=== PATIENT | female | born 1985 | race Caucasian/White ===

== ENCOUNTER 2018-10-09 21:23 | Observation (INO) ==
[2018-10-09] MEDS ORDERED: MethylPREDNISolone Sod Succinate Inj 125 MG/2 ML Vial IV.PUSH ONE (21:42)
[2018-10-09] MEDS ORDERED: Famotidine PF Inj 20 MG/2 ML Vial IV.PUSH ONE (21:42)
--- NOTE | 2018-10-09 21:50 | ED ---
HPI General Chief complaint: Allergic Reaction Stated complaint: facial swelling/poss rection Time Seen by Provider: 10/09/18 21:42 Source: patient Mode of arrival: ambulatory Limitations: no limitations History of Present Illness HPI narrative: 33-year-old female patient presents to the ER today with swelling of the left face that started getting worse about an hour ago. She states that she has had an allergic reaction asked to an unknown substance, and this time is getting worse than usual. She denies any trouble swallowing, trouble breathing, throat swelling, or other symptoms. Modifying Factors: None Associated Signs & Symptoms: Allergic reaction, facial swelling Risk Factors: Previous history of allergic reactions Related Data Home Medications Medication Instructions Recorded Confirmed No Known Home Medications 10/09/18 10/09/18 Allergies Allergy/AdvReac Type Severity Reaction Status Date / Time No Known Allergies Allergy Verified 10/09/18 21:29 Review of Systems ROS: all other systems reviewed are negative [facility] Surgical History Surgical History History of cochlear implant (Acute) Social History Social History Smoking Status: Unknown if ever smoked How Often Do You Have a Drink Containing Alcohol: Unable to Obtain Recent Travel in [place] within the Last 8 Weeks: No Recent Out of Country Travel within the Last 8 Weeks: No Immunization History Tetanus Immunization: Unsure Exam Narrative Exam Narrative: GENERAL: Well-developed middle-aged female patient currently and in moderate distress. Awake and oriented x3. SKIN: Focused skin assessment warm/dry. HEAD: Atraumatic. Normocephalic. Notable edema of the left face more than the right face, with the eyelid with significant edema. EYES: Pupils equal and round. No scleral icterus. No injection or drainage. ENT: Mucosa pink and moist. No erythema or exudates. No uvular edema. No uvular , palatal, or tonsillar deviation. Airway patent. NECK: Trachea midline. No JVD. CARDIOVASCULAR: Regular rate and rhythm. No murmur appreciated. RESPIRATORY: No accessory muscle use. Clear to auscultation. Breath sounds equal bilaterally. GASTROINTESTINAL: Abdomen soft, non-tender, nondistended. Hepatic and splenic margins not palpable. MUSCULOSKELETAL: No obvious deformities. No clubbing. No cyanosis. No edema. NEUROLOGICAL: Awake and alert. No obvious cranial nerve deficits. Motor grossly within normal limits. Normal speech. PSYCHIATRIC: Appropriate mood and affect; insight and judgment normal. Course Initial Documented Vital Signs Temperature 97.2 F L 10/09/18 21:29 Pulse Rate 88 10/09/18 21:29 Respiratory Rate 18 10/09/18 21:29 Blood Pressure 139/80 10/09/18 21:29 Pulse Oximetry 98 10/09/18 21:29 Last Documented Vital Signs Temperature 97.2 F L 10/09/18 21:29 Pulse Rate 88 10/09/18 21:29 Respiratory Rate 18 10/09/18 21:29 Blood Pressure 139/80 10/09/18 21:29 Pulse Oximetry 98 10/09/18 21:29 Medical Decision Making MDM Narrative Medical decision making narrative: Patient was given allergic reaction treatment including epinephrine, Solu-Medrol, Benadryl, Zantac, and was observed in the ER for more than 3 hours. There was very little resolution of the edema and there is actually some additional edema on the right side of the face as well. At this point, there is concerned that with this. The edema it could worsen and spread into the airway, and at this point my plan would be to admit the patient as an observation. Case was discussed with Dr. Guerrero for admission. He has also asked me to give an additional Decadron 4 mg. Medical Screen Exam Complete: Yes Emergency Medical Condition: Yes Differential Diagnosis Differential Diagnosis: Allergic reaction Discharge Plan Discharge Disposition Patient Disposition: ED Admit(ED Internal Use Only) Discharge Condition Condition: Stable Discharge Order Discharge Orders: ED Use Only Admit Order (Routine); Ordered 10/10/18 Ordered By: Chantale Alvarado Discharge Details Anticipated Discharge Date: 10/10/18 Diagnosis: Angioedema Physicians Team ED Provider: Chantale Alvarado Primary Care Provider: UNKNOWN, Attending Provider: Jude Guerrero Status ED Status: Admitted Observation Patient
[2018-10-10 04:51] LABS: Baso % (Auto) 0.5 % (0.0-2.0); Eos # (Auto) 0.1 th/mm3 (0.0-0.4); Eos % (Auto) 1.6 % (0.0-4.0); Hematocrit 41.5 % (35.0-46.0); Hemoglobin 14.4 gm/dL (11.6-15.3); Lymph # (Auto) 2.9 th/mm3 (1.0-4.8); Mean Corpuscular HGB Conc 34.7 % (32.0-36.0); Mean Corpuscular Hemoglobin 32.3 pg (27.0-34.0); Mean Platelet Volume 9.5 fL (7.0-11.0); Mono # (Auto) 0.4 th/mm3 (0.0-0.9); Mono % (Auto) 5.4 % (0.0-8.0); Neut # (Auto) 4.7 th/mm3 (1.8-7.7); Neut % (Auto) 57.5 % (16.0-70.0); Platelet Count 245 th/mm3 (150-450); Red Blood Count 4.47 mil/mm3 (4.00-5.30); Red Cell Distribution Width 12.9 % (11.6-17.2); White Blood Count 8.2 th/mm3 (4.0-11.0)
[2018-10-10 05:22] LABS: Calcium 8.8 mg/dL (8.5-10.1); Carbon Dioxide 25.9 meq/L (21.0-32.0)
[2018-10-10 05:23] LABS: Potassium 3.9 meq/L (3.5-5.1)
--- NOTE | 2018-10-10 12:13 | P.HPIM ---
History of Present Illness Primary Care Physician: UNKNOWN Chief Complaint: swellingin forehead and left eye History of Present Illness: This is a 33-year-old female with past medical history which includes meningitis with bilateral hearing loss at 8 months old. Patient has had intermitted swelling of forehead and left eye since May. Patient does not take any medications at home. Patient reports that she does not wear makeup, has not changed any of her skin or hair produces, has not changed detergents or soaps. Patient was initially treated by vulnerability researcher with eye drops then treated by lumber sales supervisor with steroids. Patient has also had bx by lumber sales supervisor. Patient does not follow with a primary MD. Patient reports that she has been assigned to Dr. Oneill, but has not yet seen him. Patient has tried to get into see a collector of aquarium specimens but has not yet seen one. Patient present ed to the ER due edema. Patient reports that her entire forehead was swollen and her left eye was swollen shut. Patient received epinephrine, Solu-Medrol, Benadryl, Zantac and Decadron 4 mg in the ER in the ER. Patient now is able to open her left eye and the edema in forehead area has decreased significantly. She denies any trouble swallowing, trouble breathing, throat swelling, shortness of breath PMH: meningitis with bilateral hearing loss at 8 months old PSxH: cochlear implant FMH: reviewed and noncontributory Social history: Patient works as a nurse in a med/surg pediatric unit Medications and Allergies Allergies Allergy/AdvReac Type Severity Reaction Status Date / Time No Known Allergies Allergy Verified 10/09/18 21:29 Home Medications Medication Instructions Recorded Confirmed Type No Known Home Medications 10/09/18 10/09/18 History Active Medications: Active Medications Sodium Chloride (Ns Flush) 2 ml IV.FLUSH PRN PRN PRN Reason: FLUSH AFTER USING IV ACCESS Physical Exam Vital signs: Last Vital Signs Temp 98.3 F 10/10/18 08:55 Pulse 81 10/10/18 08:55 Resp 16 10/10/18 08:55 BP 130/66 10/10/18 08:55 Pulse Ox 97 10/10/18 08:55 Narrative: GENERAL: This is a well-nourished, well-developed patient, in no apparent distress. HEENT: No nasal bleeding or discharge. Mucous membranes pink and moist, Trachea midline. No JVD. Airway patent. Moderate amount of periorbital edema noted CARDIOVASCULAR: Regular rate and rhythm RESPIRATORY: Clear to auscultation. Breath sounds equal bilaterally. GASTROINTESTINAL: Abdomen soft, non-tender, nondistended. Normal active bowel sounds MUSCULOSKELETAL: Extremities without clubbing, cyanosis, or edema. NEURO: Alert & Oriented x4 to person, place, time, situation. Moves all ext x4 Results Labs CBC & Chem 7: 10/10/18 04:38 10/10/18 04:38 Caprini VTE Risk Assessment Caprini VTE Risk Assessment: No/Low Risk (score <= 1) Caprini Risk Assessment Model: Point Value = 1 Point Value = 2 Point Value = 3 Point Value = 5 Age 41-60 Minor surgery BMI > 25 kg/m2 Swollen legs Varicose veins or History of unexplained or recurrent spontaneous Oral contraceptives or hormone replacement Sepsis (< 1 month) Serious lung disease, including pneumonia (< 1 month) Abnormal pulmonary function Acute myocardial infarction Congestive heart failure (< 1 month) History of inflammatory bowel disease Medical patient at bed rest Age 61-74 Arthroscopic surgery Major open surgery (> 45 min) Laparoscopic surgery (> 45 min) Malignancy Confined to bed (> 72 hours) Immobilizing plaster cast Central venous access Age >= 75 History of VTE Family history of VTE Factor V Leiden Prothrombin [id number] Lupus anticoagulant Anticardiolipin antibodies Elevated serum homocysteine Heparin-induced thrombocytopenia Other congenital or acquired thrombophilia Stroke (< 1 month) Elective arthroplasty Hip, pelvis, or leg fracture Acute spinal cord injury (< 1 month) Prophylaxis Regimen: Total Risk Factor Score Risk Level Prophylaxis Regimen 0-1 Low Early ambulation 2 Moderate Order ONE of the following: *Sequential Compression Device (SCD) *Heparin 5000 units SQ BID 3-4 Higher Order ONE of the following medications: *Heparin 5000 units SQ TID *Enoxaparin/Lovenox 40 mg SQ daily (WT < 150 kg, CrCl > 30 mL/min) *Enoxaparin/Lovenox 30 mg SQ daily (WT < 150 kg, CrCl > 10-29 mL/min) *Enoxaparin/Lovenox 30 mg SQ BID (WT < 150 kg, CrCl > 30 mL/min) AND/OR *Sequential Compression Device (SCD) 5 or more Highest Order ONE of the following medications: *Heparin 5000 units SQ TID (Preferred with Epidurals) *Enoxaparin/Lovenox 40 mg SQ daily (WT < 150 kg, CrCl > 30 mL/min) *Enoxaparin/Lovenox 30 mg SQ daily (WT < 150 kg, CrCl > 10-29 mL/min) *Enoxaparin/Lovenox 30 mg SQ BID (WT < 150 kg, CrCl > 30 mL/min) AND *Sequential Compression Device (SCD) Assessment and Plan Plan This is a 33-year-old female with past medical history which includes meningitis with bilateral hearing loss at 8 months old. Patient has had intermitted swelling of forehead and left eye since May. Patient does not take any medications at home. Patient reports that she does not wear makeup, has not changed any of her skin or hair produces, has not changed detergents or soaps. Patient was initially treated by vulnerability researcher with eye drops then treated by lumber sales supervisor with steroids. Patient has also had bx by lumber sales supervisor. Patient does not follow with a primary MD. Patient reports that she has been assigned to Dr. Oneill, but has not yet seen him. Patient has tried to get into see a collector of aquarium specimens but has not yet seen one. Patient present ed to the ER due edema. Patient reports that her entire forehead was swollen and her left eye was swollen shut. Patient received epinephrine, Solu-Medrol, Benadryl, Zantac and Decadron 4 mg in the ER in the ER. Patient now is able to open her left eye and the edema in forehead area has decreased significantly. She denies any trouble swallowing, trouble breathing, throat swelling, shortness of breath Periorbital edema ? etiology Labs unremarkable Patient was given epinephrine 1:1000 0.3 mg IM, Solu-Medrol 125 mg IV, Benadryl 25 mg IV, Famotidine 20 mg IV at 2142 and Decadron 4 mg 0114 in the ER Per patient her edema has improved, she is able to open her left eye. Moderate amount of periorbital edema still present solumedrol [address] Villanueva plan to reevaluate later today. Patient needs to establish with PCP and could benefit from outpatient immunology /Rheumatology evaluation Attending Attestation The exam, history, and the medical decision-making described in the above note were completed with the assistance of the mid-level provider. I reviewed and agree with the findings presented. I attest that I had a [id number] encounter with the patient on the same day, and personally performed and documented my assessment and findings in the medical record. Patient examined. Assessment and plan formulated with Nelia Khan PA-C. I agree with the above. Pt revisited in the evening around 7PM. Some mild improvement in pt's facial edema but not much. start solumedrol 60mg IV q6h etiology unclear at this time. H&P: Quality VTE Deep Vein Thrombosis/Pulmonary Embolism Present on Admission: No
[2018-10-10] MEDS ORDERED: MethylPREDNISolone Sod Succinate Inj 125 MG/2 ML Vial IV.PUSH ONE (13:02)
[2018-10-10] MEDS: MethylPREDNISolone Sod Succinate Inj 125 MG/2 ML Vial IV.PUSH SCH (18:40)
[2018-10-11] MEDS: MethylPREDNISolone Sod Succinate Inj 125 MG/2 ML Vial IV.PUSH SCH ×3 (00:31→12:17)
[2018-10-11 08:02] VITALS: RESP 16; TEMP 98.8
[2018-10-11] MEDS ORDERED: Acetaminophen 325 MG Tablet PO PRN (11:01)
[2018-10-11 12:20] VITALS: BP 138/82; PULSE 90; O2SAT 99
--- NOTE | 2018-10-11 14:34 | P.PNIM ---
Subjective Interval history: swelling around left eye much improved no sob. no stridor or wheeze no rash.. Physical Exam Vital signs: Last Vital Signs Temp 98.8 F 10/11/18 12:00 Pulse 90 10/11/18 12:00 Resp 16 10/11/18 12:00 BP 138/82 10/11/18 12:00 Pulse Ox 99 10/11/18 12:00 Narrative: left periorbital swelling mild no rash. no stridor or wheezing. Results Labs CBC & Chem 7: 10/10/18 04:38 10/10/18 04:38 Assessment and Plan Plan This is a 33-year-old female with past medical history which includes meningitis with bilateral hearing loss at 8 months old. Patient has had intermitted swelling of forehead and left eye since May. Patient does not take any medications at home. Patient reports that she does not wear makeup, has not changed any of her skin or hair produces, has not changed detergents or soaps. Patient was initially treated by sky diver with eye drops then treated by lettuce trimmer with steroids. Patient has also had bx by lettuce trimmer. Patient does not follow with a primary MD. Patient reports that she has been assigned to Dr. Oneill, but has not yet seen him. Patient has tried to get into see a construction project administrator but has not yet seen one. Patient present ed to the ER due edema. Patient reports that her entire forehead was swollen and her left eye was swollen shut. Patient received epinephrine, Solu-Medrol, Benadryl, Zantac and Decadron 4 mg in the ER in the ER. Patient now is able to open her left eye and the edema in forehead area has decreased significantly. She denies any trouble swallowing, trouble breathing, throat swelling, shortness of breath Periorbital edema ? etiology Labs unremarkable Patient was given epinephrine 1:1000 0.3 mg IM, Solu-Medrol 125 mg IV, Benadryl 25 mg IV, Famotidine 20 mg IV at 2142 and Decadron 4 mg 0114 in the ER Per patient her edema has improved, she is able to open her left eye. Moderate amount of periorbital edema still present Pt given iv solumedrol overnight. periorbital edema much improved. Pt reports a connection with first 3 days of her menstrual cycle. She has spoken to [facility] doctor. 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 She will be discharged on 1 week prednisone taper. She has tried h1/h2 blockers in past without benefit. She will see her [facility] on for OCP vs lupron suppression. She may need Allergy referral by her [facility] or PCP in [place] if sx's perisist or further skin testing needed. She had followed with [facility] in [place] and has some w/up already. Progress Note: Quality VTE Deep Vein Thrombosis/Pulmonary Embolism Present on Admission: No
== END 2018-10-11 15:24 | disposition home or self-care (01) ==
LOC: NEDA 21:23 → NEPC 21:23 → NEPGCP 10-10 08:14
PROVIDERS: ADMIT Hospitalist; ATTEND Hospitalist
CPT/HCPCS: 80048; 85025; 85651; 85652; 86038; 86430; 86431; 90772; 90774; 90775; 90776; 90782; 90784; 96372; 96374; 96375; 96376; 99285; C8952; G0378; J0171; J1100; J1200; J2930